=== PATIENT | male | born 1945 | race Caucasian/White ===

== ENCOUNTER 2022-06-27 08:38 | Emergency (ER) | payer MEDICARE, BC ==
[~2022-06-27] VITALS: Ht 182.9 cm; Wt 104.3 kg
[2022-06-27 08:48] VITALS: BP 166/133
[2022-06-27 09:01] VITALS: BP 163/77
[2022-06-27 09:30] VITALS: BP 137/72
[2022-06-27 10:09] VITALS: BP 139/70
== END 2022-06-27 10:10 | disposition home or self-care (01) ==
LOC: ED 08:38
DX: S00.511A Abrasion of lip, initial encounter (principal); I10 Essential (primary) hypertension; X58.XXXA Exposure to other specified factors, initial encounter; Z79.02 Long term (current) use of antithrombotics/antiplatelets

== ENCOUNTER 2022-06-28 16:26 | Emergency (ER) | payer MEDICARE, BC ==
[~2022-06-28] VITALS: Ht 182.9 cm; Wt 91.4 kg
[2022-06-28 17:08] VITALS: BP 140/70
== END 2022-06-28 17:32 | disposition home or self-care (01) ==
LOC: ED 16:26
DX: S00.511A Abrasion of lip, initial encounter (principal); I10 Essential (primary) hypertension; X58.XXXA Exposure to other specified factors, initial encounter